=== PATIENT | female | born 1975 | race Caucasian/White ===

== ENCOUNTER 2018-06-16 05:30 | Inpatient (IN) | payer BC ==
[2018-06-16] MEDS ORDERED: Ondansetron PF 4 MG/2 ML Vial IVP PRN ×3 (05:59→17:54)
[2018-06-16] MEDS ORDERED: Meperidine HCl/PF 25 MG/ML VIAL IM/IV PRN (05:59)
[2018-06-16] MEDS ORDERED: Docusate 100 MG CAP PO PRN (05:59)
[2018-06-16] MEDS ORDERED: NS w/ Oxytocin 10 units 500 ML IV SCH ×2 (05:59)
[2018-06-16] MEDS ORDERED: NS / Oxytocin 40 units/1000ml 1,000 ML IV PRN ×2 (05:59→06:32)
[2018-06-16] MEDS ORDERED: Butorphanol Tartrate 1 MG/ML VIAL SLOW IVP PRN (05:59)
[2018-06-16] MEDS ORDERED: Lidocaine 1% (PF) 30 ML VIAL SC PRN (05:59)
[2018-06-16] MEDS ORDERED: Ibuprofen 800 MG TAB PO PRN (05:59)
[2018-06-16] MEDS ORDERED: HYDROcodone/Acetaminophen 5/325 mg Tablet PO PRN ×4 (05:59→17:54)
[2018-06-16] MEDS ORDERED: Promethazine HCl 25 MG/ML VIAL IM PRN ×2 (05:59→10:08)
[2018-06-16 06:16] VITALS: BMI 28.3
[2018-06-16] MEDS: Lactated Ringer's 1,000 ML IV SCH ×2 (06:18→18:32)
[2018-06-16 06:26] LABS: Hemoglobin 13.1 g/dL (12.0-16.0); Mean Corpuscular HGB CONC 35.1 g/dL (32.0-36.0); Mean Corpuscular Hemoglobin 33.7 pg (27.0-31.0); Mean Corpuscular Volume 96.1 fL (78.0-98.0); Mean Platelet Volume 6.9 fL (7.4-10.4); Platelet Count 267 thou/uL (130-400); RBC Distribution Width 12.2 % (11.5-14.5); Red Blood Cell (RBC) Count 3.87 mill/uL (4.20-5.40); White Blood Cell (WBC) Count 5.2 thou/uL (4.8-10.8)
[2018-06-16 07:20] LABS: HBSAg Index 0.17 S/CO (0-0.99); Hep B Surf Ag Non-Reactive S/CO (NonReactive); Syphilis Antibody Nonreactive (Nonreactive); Syphilis Antibody Index 0.03 S/CO (<1.00 Non-Reactive)
[2018-06-16] MEDS ORDERED: Fentanyl 4 mcg/Bup 0.1% Cadd 100 ML ONE (09:27)
[2018-06-16] MEDS ORDERED: Naloxone HCl 0.4 mg/ml Vial IVP PRN ×2 (10:08)
[2018-06-16] MEDS ORDERED: diphenhydrAMINE 50 MG/ML VIAL IVP PRN (10:08)
[2018-06-16] MEDS ORDERED: ePHEDrine/0.9% NaCl/PF SYRINGE 50 mg/10 ml SLOW IVP PRN (10:08)
[2018-06-16] MEDS ORDERED: Acetaminophen 325 MG TAB PO PRN (10:08)
[2018-06-16] MEDS ORDERED: Eucerin (Mineral Oil/Petrolatum,White) 30 gm Jar TOP PRN (10:08)
[2018-06-16] MEDS ORDERED: Lactated Ringer's 500 ML IV PRN (10:08)
[2018-06-16] MEDS ORDERED: Communication Order-Pharmacy FS SCH (10:15)
[2018-06-16] MEDS ORDERED: Fentanyl 4 mcg/Bupivacaine 0.1% Cassette 100 ML EPIDURAL SCH (10:15)
--- NOTE | 2018-06-16 13:45 | PDOC.LDHP ---
Labor and Delivery H&P Chief complaint: scheduled induction HPI: Pt is a 43yo @ 38+ weeks here for IOL for hx of loss followed by diagnosis of homozygous MTHFR and AMA in the presence of anticoagulant use. Pt has been on prophylactic dose of lovenox since early . Due date: 06/25/18 Dating criteria: first trimester ultrasound Grav: 6 Para: 3 OB History Details: x 3 SAB 6 weeks MAB 15 weeks Current complications: other (AMA, homozygous MTFHR on Lovenox) Abnormal US findings: No Past Medical History: homozygous MTHFR Current medications: pre- vitamins, other (lovenox 40mg sq daily) Previous surgical history: dilation and curettage Allergies/Adverse Reactions: Allergies Allergy/AdvReac Type Severity Reaction Status Date / Time No Known Allergies Allergy Verified 06/16/18 06:19 Social history: none - Physical Exam Vital signs reviewed and normal: yes General: resting Heart: RRR Lungs: CTAB Abdomen: gravid Extremeties: no edema FHT: category 1 - Vaginal Exam cm dilated: 3 Effacement: 50% Station: -2 - OB Labs Blood type: O RH: positive Antibody Screen: negative HIV: negative RPR: negative HEPSAg: negative 1 hour GCT: negative GBS: negative - Assessment L&D Assessment: medically indicated induction (On lovenox for homozygous MTHFR, AMA) - Plan Plan: admit to L&D, labor augmentation if indicated, informed consent obtained, anesthesia consult for pain management -: A/P: Pt is a 43yo here for scheduled IOL @ 38+ weeks for anticoagulation use, hx of loss and advanced maternal age. Pt last dose of lovenox was 0430 yesterday. AROM on admit exam with clear fluid. Epidural at pt request.
--- NOTE | 2018-06-16 16:00 | PDOC.OPDEL ---
OB Operative/Delivery Note Delivery Dr/Surgeon: [place] Pre-Delivery Diagnosis: medically indicated induction Procedure/Post Delivery Dx: spontaneous vaginal delivery Weeks gestation: 38 Anesthesia: epidural - Findings A Sex: female - 1 min: 8 - 5 min: 9 - Additional Findings/Plan Placenta delivered: spontaneous Repaired Obstetrical Laceration: vaginal (right sidewall repaired w fig 8 x 2) Estimated blood loss: 200ml Post delivery plan: routine recovery
[2018-06-16] MEDS ORDERED: Milk Of Magnesia 30 ML UDCUP PO PRN (17:54)
[2018-06-16] MEDS ORDERED: Lanolin Ointment 7 GM TUBE TOP PRN (17:54)
[2018-06-16] MEDS ORDERED: NS / Oxytocin 40 units/1000ml 1,000 ML IV SCH (17:54)
[2018-06-16] MEDS ORDERED: Benzocaine/Menthol 20-0.5% 60 ML CAN TOP PRN (17:54)
[2018-06-16] MEDS ORDERED: Bisacodyl 10 MG SUPP PR PRN (17:54)
[2018-06-16] MEDS ORDERED: Preparation H Ointment 28 GM TUBE PR PRN (17:54)
[2018-06-16] MEDS ORDERED: diphenhydrAMINE 25 MG CAP PO PRN (17:54)
[2018-06-16] MEDS ORDERED: Ferrous Sulfate 325 MG TAB PO SCH (18:15)
[2018-06-16] MEDS: Ibuprofen 800 MG TAB PO SCH (20:43)
[2018-06-16] MEDS: Docusate Calcium (SURFAK) 240 MG CAP PO SCH (20:44)
[2018-06-17] MEDS: Ibuprofen 800 MG TAB PO SCH ×2 (06:41→14:28)
[2018-06-17 06:47] LABS: Hemoglobin 11.9 g/dL (12.0-16.0); Mean Corpuscular HGB CONC 34.9 g/dL (32.0-36.0); Mean Corpuscular Hemoglobin 33.9 pg (27.0-31.0); Mean Corpuscular Volume 97.3 fL (78.0-98.0); Mean Platelet Volume 6.9 fL (7.4-10.4); Platelet Count 216 thou/uL (130-400); RBC Distribution Width 12.3 % (11.5-14.5)
[2018-06-17 08:05] VITALS: TEMP 97.9
[2018-06-17] MEDS ORDERED: Prenatal Vitamin 1 TAB PO SCH (09:00)
[2018-06-17] MEDS ORDERED: Enoxaparin Sodium 40 MG/0.4 ML SYRINGE SC SCH (09:00)
[2018-06-17] MEDS ORDERED: Adacel (T-DAP) 0.5 ML VIAL IM ONE (09:00)
[2018-06-17] MEDS: Ferrous Sulfate 325 MG TAB PO SCH ×2 (09:36→17:42)
[2018-06-17] MEDS: Docusate Calcium (SURFAK) 240 MG CAP PO SCH (09:37)
[2018-06-17] MEDS ORDERED: Bupivacaine 0.25% HCL 30 ML VIAL ONE (10:40)
--- NOTE | 2018-06-17 12:09 | PDOC.PP ---
Post Progress Note Post Day #: 1 Subjective: nursing well, min pain, min lochia, desires DC home today if possible, has Lovenox at home to continue PO intake tolerated: yes Flatus: yes Ambulation: yes Vital Signs (12 hours) Temp Pulse Resp BP Pulse Ox 06/17/18 08:04 97.9 F 67 20 117/65 95 06/17/18 04:00 98.2 F 75 17 129/68 Weight Weight 160 lb - Physical Examination General: NAD Respiratory: non-labored breathing Fundus firm & at: below umb Skin: no rash Psychiatric: normal affect Result Diagrams: 06/17/18 06:07 Additional Labs: Post Labs Blood Type O POSITIVE 06/16/18 06:18 Hep Bs Antigen Non-Reactive S/CO (NonReactive) 06/16/18 06:18 (1) Vaginal delivery Code(s): O80 - ENCOUNTER FOR FULL-TERM UNCOMPLICATED DELIVERY Status: Acute (2) Advanced maternal age (AMA), 40 years or greater Code(s): YNW8628 - Status: Acute - Assessment/Plan PPD1 doing well, no concerns, plan to continue lovenox PP reviewed, will transition to baby ASA as well. Likely DC today.
[2018-06-17 12:12] VITALS: BP 117/72
== END 2018-06-17 17:50 | disposition home or self-care (01) | DRG 806 ==
LOC: L&D 05:33 → 3SW 18:25
PROVIDERS: ADMIT Obstetrics & Gynecology; ATTEND Obstetrics & Gynecology
PROC: 10907ZC Drainage of Amniotic Fluid, Therapeutic from Products of Conception, Via Natural or Artificial Opening (ICD-10-PCS; principal; 2018-06-16)
PROC: 10E0XZZ Delivery of Products of Conception, External Approach (ICD-10-PCS; 2018-06-16)
DX: O99.283 Endocrine, nutritional and metabolic diseases complicating pregnancy, third trimester (principal); E72.12 Methylenetetrahydrofolate reductase deficiency; Z37.0 Single live birth; Z3A.38 38 weeks gestation of pregnancy; Z79.01 Long term (current) use of anticoagulants; O26.23 Pregnancy care for patient with recurrent pregnancy loss, third trimester
CPT/HCPCS: 36415; 51702; 85027; 86780; 86850; 86900; 86901; 87340; J2001; J2405; S0020